=== PATIENT | female | born 1950 | race Caucasian/White ===

== ENCOUNTER 2021-07-20 18:27 | Inpatient (IN) | payer MEDICARE ==
[~2021-07-20] VITALS: Ht 162.6 cm; Wt 43.4 kg
[2021-07-20] MEDS: SOLU-MEDROL 125MG VIAL IVP ONE ×2 (18:30→19:41)
[2021-07-20 18:44] LABS: BASOPHILS % (AUTO) 0.4 % (0.0-5.0); EOSINOPHILS % (AUTO) 1.9 % (0.0-8.0); HEMATOCRIT 41.2 % (36-48); LYMPHOCYTES % (AUTO) 23.5 % (21.0-51.0); MEAN CORPUSCULAR HEMOGLOBIN 30.2 pg (27.0-33.0); MEAN CORPUSCULAR HGB CONC 32.3 g/dL (32.0-36.0); MEAN CORPUSCULAR VOLUME 93.6 fL (79-99); MONOCYTES % (AUTO) 8.6 % (3.0-13.0); NEUTROPHILS % (AUTO) 64.9 % (40.0-77.0); PLATELET COUNT (AUTO) 248 K/uL (130-400); RED CELL DISTRIBUTION WIDTH 12.8 % (11.0-15.5); WHITE BLOOD COUNT (AUTO) 14.8 K/uL (4.8-10.8)
[2021-07-20] MEDS ORDERED: SOLU-MEDROL 125MG VIAL ONE (18:51)
[2021-07-20 19:02] LABS: CARBON DIOXIDE 29 mmol/L (21-32); CHLORIDE 105 mmol/L (101-111); CREATININE 0.7 mg/dL (0.5-1.5); GLOMERULAR FILTR. RATE CALC 87 mL/min (>60); GLUCOSE,RANDOM 147 mg/dL (70-105); POTASSIUM 3.8 mmol/L (3.5-5.1); SODIUM SERUM 141 mmol/L (136-145); UREA NITROGEN, BLOOD 19 mg/dL (7-18)
[2021-07-20 19:07] LABS: ALANINE AMINOTRANSFERASE 27 U/L (12-78); ALBUMIN 3.8 g/dL (3.5-5.0); ASPARTATE AMINOTRANSFERASE 20 U/L (10-37); BILIRUBIN,TOTAL 0.2 mg/dL (0.2-1.0); TOTAL PROTEIN, SERUM 6.9 g/dL (6.0-8.3)
[2021-07-20 19:12] LABS: CRP QUANTITATIVE < 2.00 mg/L (0.00-9.0)
[2021-07-20] MEDS ORDERED: FENTANYL CITRATE PF 50 MCG/1 ML 2ML VIAL IVP ONE (19:30)
[2021-07-20 19:34] LABS: B-TYPE NATRIURETIC PEPTIDE 16 pg/mL (0-100)
[2021-07-20] MEDS ORDERED: FENTANYL CITRATE PF 50 MCG/1 ML 2ML VIAL ONE (19:41)
[2021-07-20] MEDS ORDERED: IPRATROPIUM/ALBUTEROL SULFATE 3 ML SOLUTION IH ONE (20:30)
[2021-07-20] MEDS: SOLU-MEDROL 40MG VIAL IVP SCH (21:00)
[2021-07-20] MEDS ORDERED: MORPHINE 2 MG SYG IV PRN (21:30)
[2021-07-20] MEDS: 0.9% NACL 250ML 250 ML IV SCH (21:48)
[2021-07-20] MEDS: DOXYCYCLINE 100MG+NS 250ML 250 ML IV SCH (21:48)
[2021-07-20] MEDS: LACTATED RINGERS 1000ML 1,000 ML IV SCH (21:49)
[2021-07-20] MEDS: CEFTRIAXONE 1G VIAL IV SCH (21:49)
[2021-07-21] MEDS: IPRATROPIUM/ALBUTEROL SULFATE 3 ML SOLUTION IH SCH ×5 (00:04→23:30)
[2021-07-21 07:20] LABS: HEMATOCRIT 37.5 % (36-48); LYMPHOCYTES % (AUTO) 10.6 % (21.0-51.0); MEAN CORPUSCULAR HGB CONC 32.3 g/dL (32.0-36.0); MEAN CORPUSCULAR VOLUME 92.8 fL (79-99); MONOCYTES % (AUTO) 2.9 % (3.0-13.0); PLATELET COUNT (AUTO) 202 K/uL (130-400); RED BLOOD CELL COUNT(AUTO) 4.04 MIL/uL (4.00-5.50); WHITE BLOOD COUNT (AUTO) 6.5 K/uL (4.8-10.8)
[2021-07-21 07:30] LABS: CREATININE 0.9 mg/dL (0.5-1.5); MAGNESIUM 1.7 mg/dL (1.80-2.40); PHOSPHORUS 3.9 mg/dL (2.5-4.9); POTASSIUM 3.9 mmol/L (3.5-5.1)
[2021-07-21] MEDS: FAMOTIDINE 20MG VIAL IV SCH (10:00)
[2021-07-21] MEDS: 0.9% NACL 250ML 250 ML IV SCH ×2 (10:00→21:54)
[2021-07-21] MEDS: DOXYCYCLINE 100MG+NS 250ML 250 ML IV SCH ×2 (10:00→21:54)
[2021-07-21] MEDS: SOLU-MEDROL 40MG VIAL IVP SCH ×2 (10:00→21:54)
[2021-07-21] MEDS: LACTATED RINGERS 1000ML 1,000 ML IV SCH (10:01)
[2021-07-21] MEDS ORDERED: MAGNESIUM 2GM PREMIX 50ML 50 ML IV SCH (13:30)
[2021-07-21 13:50] VITALS: BP 105/50
[2021-07-21] MEDS: 0.9%NACL 1000ML 1,000 ML IV SCH ×2 (14:02→22:40)
[2021-07-21 15:15] VITALS: BP 107/50
[2021-07-21 20:00] VITALS: BP 122/56
[2021-07-21] MEDS: CEFTRIAXONE 1G VIAL IV SCH (21:54)
[2021-07-22] VITALS: BP 117/64
[2021-07-22 03:57] VITALS: BP 100/58
[2021-07-22] MEDS: IPRATROPIUM/ALBUTEROL SULFATE 3 ML SOLUTION IH SCH (06:29)
[2021-07-22 08:00] VITALS: BP 113/57
[2021-07-22] MEDS: SOLU-MEDROL 40MG VIAL IVP SCH (09:53)
[2021-07-22] MEDS: FAMOTIDINE 20MG VIAL IV SCH (09:58)
[2021-07-22] MEDS ORDERED: PRED20TA3 PO (11:08)
[2021-07-22] MEDS ORDERED: DOXY100C5 PO (11:08)
[2021-07-22] MEDS ORDERED: ALBUHFA IH (11:08)
[2021-07-22] MEDS ORDERED: INHA1EAC51 MC (11:08)
[2021-07-23] MEDS ORDERED: LEVOFLOXACIN 500 MG TABLET PO SCH (09:00)
[2021-07-23] MEDS ORDERED: PREDNISONE 20 MG TABLET PO SCH (09:00)
== END 2021-07-22 13:30 | disposition home or self-care (01) | DRG 199 ==
LOC: EDH 18:27 → EDHIP 20:48 → 4BH 07-21 13:48
PROVIDERS: ADMIT Internal Medicine; ATTEND Internal Medicine
PROC: 0W9930Z Drainage of Right Pleural Cavity with Drainage Device, Percutaneous Approach (ICD-10-PCS; principal; 2021-07-20)
PROC: 0WP9X0Z Removal of Drainage Device from Right Pleural Cavity, External Approach (ICD-10-PCS; 2021-07-22)
DX: J93.83 Other pneumothorax (principal); J96.01 Acute respiratory failure with hypoxia; J44.1 Chronic obstructive pulmonary disease with (acute) exacerbation; E83.42 Hypomagnesemia; D72.828 Other elevated white blood cell count; Z87.891 Personal history of nicotine dependence; Z90.710 Acquired absence of both cervix and uterus; Z20.822 Contact with and (suspected) exposure to COVID-19
CPT/HCPCS: 36415; 71045; 71250; 80048; 80053; 83735; 83880; 84100; 84145; 84484; 85025; 86140; 87635; 92610; 93005; 94640; 94664; 99291; C9803; G0378; J0696; J2920; J2930; J3010; J3490; J7030; J7120